=== PATIENT | female | born 1995 | race Caucasian/White ===

== ENCOUNTER 2021-08-29 07:58 | Emergency (ER) | payer OTHER, SELFPAY ==
[2021-08-29 08:02] VITALS: BP 128/77; PULSE 71; RESP 18; TEMP 36.8; O2SAT 98; BMI 43.4
--- NOTE | 2021-08-29 08:09 | ED_ITS ---
HPI - Anxiety General Chief Complaint: Nausea/Vomiting/Diarrhea Stated Complaint: VOMITING Time Seen by Provider: 08/29/21 07:59 Source: patient Mode of arrival: ambulatory Limitations: no limitations History of Present Illness MD complaint: anxiety (vomiting) Onset (ago): week(s) (1) Symptoms: extremity numbness/tingling, dry mouth, sense of impending doom and other (vomiting) Severity: moderate Quality: constant Place: home History of similar episodes: Yes Provoking factors: none known Relieving factors: nothing Exacerbating factors: nothing Associated symptoms: anorexia, malaise and nausea/vomiting Related Data Previous Rx's Medication Instructions Recorded ondansetron 4 mg disintegrating 4 mg PO Q8H PRN #20 tab 08/29/21 tablet Allergies Allergy/AdvReac Type Severity Reaction Status Date / Time No Known Allergies Allergy Verified 08/29/21 08:04 Review of Systems Review of Systems: Constitutional : No Weight loss, No Fever, No Chills ENT/Mouth : No sore throat, No Rhinorrhea Eyes: No Swelling, No Redness Cardiovascular : No Chest Pain, No SOB, NoEdema Respiratory : No Cough, No Sputum, No Wheezing Gastrointestinal : Positive Nausea, Positive Vomiting, no Diarrhea, positive abdominal Pain from vomiting, No Hematochezia, No Melena Genitourinary : No Dysuria, No Urinary Frequency, No Hematuria, No Urgency Musculoskeletal : No joint pain, No Myalgias, No Joint Swelling Skin : No Skin Lesions, No rash Neuro : No Weakness, No Numbness, No Dizziness, No Headache Psych : No Anxiety/Panic, No Depression Heme/Lymph: No Bruising, No Lymphadenopathy Endocrine : No Polyuria, No Polydipsia All other systems reviewed and are negative. [facility] Past Medical History Attestation statement: The following information was validated with the patient. Medical History Anxiety Benign tumor of pituitary gland Panic attack Social History Social History (Updated 08/29/21 @ 08:33 by Adelina Small DO) Patient Tobacco Use Status: Never used Tobacco Advance Directives: No Advance Directives Information Provided: No Patient : No Physical Exam Vital Signs: Vital Signs: Last Vital Signs Temp 99.1 F 08/29/21 09:12 Pulse 54 08/29/21 09:12 Resp 15 08/29/21 09:12 BP 115/81 08/29/21 09:12 Pulse Ox 94 08/29/21 09:12 Body Mass Index 43.4 Appearance: Alert. Oriented X3. Anxious mild acute distress. Eyes: Pupils equal, round and reactive to light. ENT: Pharynx mild dry MM Neck: Normal inspection. Neck supple. CVS: Normal heart rate and rhythm. Pulses normal. Respiratory: No respiratory distress. Breath sounds normal. Abdomen: Soft and very mild epigastric ttp no rebound or guarding Skin: Skin warm and dry. Normal skin color. Extremities: No lower extremity edema. Neuro: Oriented X 3. No motor deficit. No sensory deficit. Course Course Course Narrative: feels much better stable for DC MDM - Anxiety MDM Narrative Medical decision making narrative: 26 yo female with anxiety here with c/o panic attacks all week without trigger she reports n/v and now epigastric discomfort - she is taking her sertraline as prescribed. At this time will need basic labs, hydration and IV ativan to get her symptoms under control. No SI - if she is improved can be DC home with nausea medications. Lab Data Result diagrams: 08/29/21 08:47 08/29/21 08:47 Labs: Lab Results 08/29/21 08/29/21 08/29/21 Range/Units 08:47 08:47 08:47 WBC 8.6 (4.8-10.8) X10*3/uL RBC 4.16 L (4.20-5.50) X10*6/uL Hgb 13.3 (12.0-16.0) g/dl Hct 38.2 (37.0-47.0) % MCV 91.8 (80.0-98.0) fL MCH 32.0 (27.0-33.0) pg MCHC 34.8 (31.0-35.0) g/dl RDW 12.3 (11.0-16.0) % Plt Count 345 (160-400) X10*3/uL MPV 10.1 (9.4-12.3) fL Immature Gran % (Auto) 0.3 (0.0-0.4) % Neut % (Auto) 75.9 H (45-73) % Lymph % (Auto) 17.0 L (20-40) % [place] % (Auto) 6.0 (2-11) % Eos % (Auto) 0.5 (0-4) % Baso % (Auto) 0.3 (0-2) % Lymph # (Auto) 1.5 (1.2-4.9) X10*3/uL [place] # (Auto) 0.5 (0.1-1.2) X10*3/uL Eos # (Auto) 0.0 (0.0-0.4) X10*3/uL Baso # (Auto) 0.0 (0.0-0.2) X10*3/uL Abs Immat Gran (auto) 0.03 (0.00-0.03) X10*3/uL Absolute Neuts (auto) 6.5 (2.0-8.3) x10*3/uL Absolute Nucleated RBC 0.000 (0.0-0.012) X10*3/uL Nucleated RBC % (auto) 0.0 (0.0-0.2) /100WBC Sodium 139 (135-145) mmol/L Potassium 3.7 (3.3-5.1) mmol/L Chloride 110 H (96-108) mmol/L Carbon Dioxide 16 L (22-29) mmol/L Anion Gap 17 (12-20) BUN 12 (9-16) mg/dL Creatinine 0.81 (0.5-1.4) mg/dL Estim Creat Clear Calc 117.0 Estimated GFR > 60 Random Glucose 113 (60-115) mg/dL Calcium 9.5 (8.4-10.2) mg/dL Magnesium 2.1 (1.6-2.6) mg/dL Total Bilirubin 0.6 (0.0-1.0) mg/dL Direct Bilirubin 0.3 (0.0-0.5) mg/dL AST 25 (5-31) U/L ALT 35 H (0-31) U/L Alkaline Phosphatase 72 (39-117) U/L Total Protein 8.1 H (6.5-8.0) g/dL Albumin 4.6 (3.5-5.0) g/dL Beta HCG, Quant < 2 mIU/mL Discharge Plan Discharge Clinical Impression: Anxiety Vomiting Qualifiers: Vomiting type: unspecified Vomiting Intractability: non-intractable Nausea presence: with nausea Qualified Code(s): R11.2 - Nausea with vomiting, unspecified Patient Disposition: Home, Self-Care Instructions: Acute Nausea and Vomiting (ED), Anxiety (ED) Additional Instructions: return to ED for any worsening symptoms or concerns please continue to find a therapist Prescriptions: New ondansetron 4 mg tablet,disintegrating 4 mg PO Q8H PRN (Reason: nausea and vomiting) Qty: 20 RF: 0 Stand Alone Forms: Work/School Release
[2021-08-29 08:52] LABS: MANUAL DIFF FLAG NO
[2021-08-29 08:56] LABS: Basophils Percent Auto 0.3 % (0-2); Eosinophils Percent Auto 0.5 % (0-4); Hematocrit 38.2 % (37.0-47.0); Hemoglobin 13.3 g/dl (12.0-16.0); Imm Gran Abs Auto 0.03 X10*3/uL (0.00-0.03); Imm Gran Pct Auto 0.3 % (0.0-0.4); Lymphocytes Absolute Auto 1.5 X10*3/uL (1.2-4.9); Mean Corpuscular HGB Conc 34.8 g/dl (31.0-35.0); Mean Corpuscular Volume 91.8 fL (80.0-98.0); Mean Platelet Volume 10.1 fL (9.4-12.3); Monocytes Absolute Auto 0.5 X10*3/uL (0.1-1.2); Neutrophils Absolute Auto 6.5 x10*3/uL (2.0-8.3); Neutrophils Percent Auto 75.9 % (45-73); Platelet Count 345 X10*3/uL (160-400); Red Blood Count 4.16 X10*6/uL (4.20-5.50); Red Cell Distribution Width 12.3 % (11.0-16.0); White Blood Count 8.6 X10*3/uL (4.8-10.8)
[2021-08-29] MEDS: ondansetron HCL 4 MG/2 ML VIAL IVPUSH (08:57)
[2021-08-29] MEDS: LORazepam 2 MG/ML VIAL 1 MG IVPUSH (08:57)
[2021-08-29] MEDS: Famotidine/PF 20 MG/2 ML VIAL IVPUSH (08:57)
[2021-08-29] MEDS: 0.9 % Sodium Chloride 1,000 ML 999 ML IVCONT (09:05)
[2021-08-29 09:08] LABS: Alanine Aminotransferase 35 U/L (0-31); Albumin Level 4.6 g/dL (3.5-5.0); Alkaline Phosphatase 72 U/L (39-117); Anion Gap 17 (12-20); Aspartate Amino Transferase 25 U/L (5-31); Bilirubin Direct 0.3 mg/dL (0.0-0.5); Bilirubin Total 0.6 mg/dL (0.0-1.0); Blood Urea Nitrogen 12 mg/dL (9-16); Calcium 9.5 mg/dL (8.4-10.2); Carbon Dioxide 16 mmol/L (22-29); Chloride 110 mmol/L (96-108); Estimated Glomerular Filt Rate > 60; Glucose Random 113 mg/dL (60-115); Magnesium 2.1 mg/dL (1.6-2.6); Potassium 3.7 mmol/L (3.3-5.1); Sodium 139 mmol/L (135-145); Total Protein 8.1 g/dL (6.5-8.0)
[2021-08-29 09:12] VITALS: BP 115/81; PULSE 54; RESP 15; TEMP 37.3; O2SAT 94
[2021-08-29 09:14] LABS: HCG Quantitative < 2 mIU/mL
== END 2021-08-29 11:31 | disposition home or self-care (01) ==
PROVIDERS: Emergency Provider Emergency Medicine; PCP Family Medicine
DX: F41.9 Anxiety disorder, unspecified (principal); R11.2 Nausea with vomiting, unspecified
CPT/HCPCS: 36415; 80048; 80076; 83735; 84702; 85025; 96361; 96374; 96375; 99283; 99284; J2060; J2405

== ENCOUNTER 2021-09-07 09:26 | Emergency (ER) | payer OTHER, SELFPAY ==
--- NOTE | ~2021-09-07 | CT_ITS ---
EXAMINATION: CT ABDOMEN AND PELVIS WITH CONTRAST CLINICAL INFORMATION: Nausea, vomiting and left-sided abdominal pain COMPARISON: None TECHNIQUE: Multidetector volumetric images were obtained from the superior aspect of the liver through the pubic symphysis following administration 85 mL of Omnipaque 350 intravenous contrast. Sagittal and coronal reformatted images were obtained on the technologist's workstation. Oral contrast: Yes This CT examination was performed using dose optimization techniques as appropriate, variously including the following: *Automated exposure control *Adjustment of mA and/or kV according to patient size (this includes techniques or standardized protocols for targeted exams where dose is matched to indication/reason for exam; i.e. extremities or head) *Use of iterative reconstruction technique DLP: 810 mGy-cm FINDINGS: LUNG BASES: The visualized lung bases are unremarkable. LIVER, GALLBLADDER, AND BILIARY TREE: The liver is normal in size, shape, and attenuation. No focal hepatic lesion or biliary ductal dilatation is present. The gallbladder is unremarkable with no evidence of radiopaque gallstones, gallbladder wall thickening, or obvious pericholecystic inflammatory changes. PANCREAS: Unremarkable. SPLEEN: Unremarkable. ADRENAL GLANDS: Unremarkable. KIDNEYS AND URETERS: The kidneys are normal in size, shape, and attenuation. No hydronephrosis, hydroureter, or calculi seen. No perinephric stranding. BLADDER: Unremarkable. GASTROINTESTINAL TRACT: There is mild diverticulosis of the colon. The small and large bowel are otherwise unremarkable. The appendix is unremarkable. ABDOMINAL WALL: No significant hernia is appreciated. LYMPH NODES: Normal. VASCULAR: Unremarkable. PELVIC VISCERA: Unremarkable. OSSEOUS STRUCTURES: Unremarkable. CT/CT abdomen pelvis w con IMPRESSION: No acute findings. Mild diverticulosis of the colon. Fleischner guidelines were followed.
[2021-09-07 09:44] VITALS: BP 121/81; PULSE 72; RESP 18; TEMP 37.1; O2SAT 99; BMI 43.4
[2021-09-07] MEDS: 0.9 % Sodium Chloride 1,000 ML 999 ML IVCONT (10:18)
[2021-09-07] MEDS: ondansetron HCL 4 MG/2 ML VIAL IVPUSH (10:26)
[2021-09-07 10:27] LABS: MANUAL DIFF FLAG NO
[2021-09-07 10:30] LABS: Basophils Percent Auto 0.2 % (0-2); Eosinophils Percent Auto 0.3 % (0-4); Hematocrit 40.1 % (37.0-47.0); Hemoglobin 13.4 g/dl (12.0-16.0); Imm Gran Abs Auto 0.02 X10*3/uL (0.00-0.03); Imm Gran Pct Auto 0.3 % (0.0-0.4); Lymphocytes Absolute Auto 1.8 X10*3/uL (1.2-4.9); Mean Corpuscular HGB Conc 33.4 g/dl (31.0-35.0); Mean Corpuscular Hemoglobin 31.3 pg (27.0-33.0); Mean Corpuscular Volume 93.7 fL (80.0-98.0); Mean Platelet Volume 10.9 fL (9.4-12.3); Monocytes Absolute Auto 0.6 X10*3/uL (0.1-1.2); Monocytes Percent Auto 10.4 % (2-11); Neutrophils Absolute Auto 3.4 x10*3/uL (2.0-8.3); Neutrophils Percent Auto 57.8 % (45-73); Platelet Count 213 X10*3/uL (160-400); Red Blood Count 4.28 X10*6/uL (4.20-5.50); Red Cell Distribution Width 12.3 % (11.0-16.0); White Blood Count 5.8 X10*3/uL (4.8-10.8)
[2021-09-07 10:50] LABS: INTERNATIONAL NORM RATIO 1.1 (0.9-1.1); Prothrombin Time 12.1 SEC (9.9-13.0)
--- NOTE | 2021-09-07 11:08 | ED.NAVMDI ---
HPI - Nausea/Vomiting/Diarrhea General Chief complaint: Nausea/Vomiting/Diarrhea Stated complaint: Abd pain/vomiting Time Seen by Provider: 09/07/21 09:55 Source: patient and family Mode of arrival: ambulatory Limitations: no limitations History of Present Illness HPI Narrative: 26-year-old female with a past medical history of anxiety, panic attacks and benign tumor of pituitary gland presenting to the ED with complaints of nausea / vomiting with left abdominal pain for the past 2 days worse today. She denies any fevers, chills, dizziness, headaches, chest pain or shortness of breath, black or bloody emesis, radiation of the abdominal pain, back pain, dysuria, hematuria, black or bloody stools, recent travel or sick contacts or possible bad food exposure or any other symptoms complaints or Concerns at this time. MD elicited complaint: nausea, vomiting and abdominal pain Onset (ago): day(s) (2) Description of vomiting: food contents, watery, bilious and continuous Associated nausea: Yes Associated abdominal pain: Yes Location of pain: periumbilical and LLQ Radiation: does not radiate Pain consistency: constant Severity: moderate Quality: cramping, aching and constant Exacerbating factors: eating and vomiting Relieving factors: none Associated symptoms: denies other symptoms Related Data Previous Rx's Medication Instructions Recorded ondansetron 4 mg disintegrating 4 mg PO Q8H PRN #20 tab 08/29/21 tablet acetaminophen 500 mg tablet 1,000 mg PO QID PRN #14 tab 09/07/21 (Tylenol Extra Strength) ondansetron HCl 4 mg tablet 4 mg PO Q8H PRN #14 tab 09/07/21 (Zofran) Allergies Allergy/AdvReac Type Severity Reaction Status Date / Time No Known Allergies Allergy Verified 08/29/21 08:04 Review of Systems Review of Systems: Constitutional : No Fever, No Chills, No Night Sweats, No Fatigue, No Malaise Cardiovascular : No Chest Pain, No SOB Respiratory : No Cough, No Sputum, No Wheezing, No Dyspnea Gastrointestinal : + Nausea, + Vomiting, No Diarrhea, + abdominal Pain, No Hematochezia, No Melena Genitourinary : No irregular bleeding, No Dysuria, No Urinary Frequency, No Hematuria,No Urinary Incontinence, No Urgency, No Flank Pain Musculoskeletal : No joint pain, No Myalgias, No Joint Swelling Skin : No Skin Lesions, No rash Neuro : No Weakness, No Numbness, No Paresthesias, No Loss of Consciousness, No Dizziness, No Headache Heme/Lymph: No Lymphadenopathy Endocrine : No Temperature Intolerance Yes all other systems are reviewed and are negative Gastrointestinal: Gastrointestinal: Reports nausea PMFSH Past Medical History Attestation statement: The following information was validated with the patient. Medical History (Updated 09/07/21 @ 14:41 by NYLA Lujan) Anxiety Benign tumor of pituitary gland Panic attack Social History Social History (Updated 08/29/21 @ 08:33 by Adelina Small DO) Alcohol intake: never Patient Tobacco Use Status: Never used Tobacco Use of substances other than those prescribed or required for medical reasons: No Advance Directives: No Advance Directives Information Provided: No Patient : No Physical Exam Vital Signs: Vital Signs: Last Vital Signs Temp 98.8 F 09/07/21 09:44 Pulse 72 09/07/21 09:44 Resp 18 09/07/21 09:44 BP 121/81 09/07/21 09:44 Pulse Ox 99 09/07/21 09:44 BMI result Body Mass Index 43.4 vital signs have been reviewed as normal and appeared to be correct. Blood pressure normal. Heart rate normal. Respiration rate normal. Temperature normal. Oxygen saturation normal. Appearance: Alert. Oriented X3. No acute distress. Head: Normal external exam. Normocephalic. Eyes: PERRLA. EOMI. Conjunctiva and sclera normal. Eyelids normal. ENT: Pharynx normal. Uvula midline. Moist mucous membranes. Neck: Normal inspection. Neck supple. FROM. No adenopathy. No meningeal signs. CVS: Normal heart rate and rhythm. Heart sound normal. No murmurs noted. Pulses normal throughout. Respiratory: No respiratory distress. Painless inspiration. Breath sounds normal. No wheezes/rales/rhonchi noted. Chest nontender. No accessory muscle usage noted or decreased air movement noted. Abdomen: Soft and mild ttp to left lower abdomen. Nondistended. No guarding. No rigidity. Bowel sounds normal in all 4 quadrants. No distention noted. No organomegaly noted. No visible injury noted. No rebound tenderness. Negative Rovsing sign. Negative obturator's sign. Negative psoas sign. Negative Mauro sign. Back: No CVA tenderness. Full range of motion noted. Skin: Skin warm and dry. Normal skin color. Normal skin turgor. No rashes/lesions/lacerations noted. Extremities: Extremities exhibit normal range of motion. Extremities nontender. Neuro: Oriented X 3. No motor deficit. No sensory deficit. Reflexes normal. Normal steady gait. Course Course Course Narrative: 10am - 26-year-old female with a past medical history of anxiety, panic attacks and benign tumor of pituitary gland presenting to the ED with complaints of nausea / vomiting with left abdominal pain for the past 2 days worse today. Concern for Diverticulitis versus kidney stone versus UTI versus constipation. Less concern for cholecystitis versus pancreatitis versus appendicitis does not clinically correlate with the patient's history and physical. Plan: Labs, UA, UHCG, CT scan abdomen pelvis with IV contrast. Provide a L of IV fluids and 4 mg of Zofran and re-evaluate. Reevaluation(s) Reevaluation #1: - Labs reviewed and patient's AST/ ALT of 43/53 otherwise all other labs are within normal limits. UA revealed 80 ketones otherwise no evidence of UTI patient negative for . Patient was positive for COVID. Patient negative for flu/ RSV. - CT scan abdomen pelvis with IV contrast revealed mild diverticulosis of the colon otherwise no other acute processes were noted. Therefore at this time will DC home with symptomatic treatment struck shins to self isolate and to return if any new or worsening symptoms to follow up with primary care provider. Patient understands agrees with this plan. Time: 14:37 MDM - Nausea/Vomiting/Diarrhea Medical Records Attestation: I reviewed the patient's medical records. Lab Data Attestation: I reviewed the patient's lab results. Result diagrams: 09/07/21 10:19 09/07/21 13:07 Labs: Lab Results 09/07/21 09/07/21 09/07/21 Range/Units 10:19 10:19 10:35 WBC 5.8 (4.8-10.8) X10*3/uL RBC 4.28 (4.20-5.50) X10*6/uL Hgb 13.4 (12.0-16.0) g/dl Hct 40.1 (37.0-47.0) % MCV 93.7 (80.0-98.0) fL MCH 31.3 (27.0-33.0) pg MCHC 33.4 (31.0-35.0) g/dl RDW 12.3 (11.0-16.0) % Plt Count 213 D (160-400) X10*3/uL MPV 10.9 (9.4-12.3) fL Immature Gran % (Auto) 0.3 (0.0-0.4) % Neut % (Auto) 57.8 (45-73) % Lymph % (Auto) 31.0 (20-40) % [place] % (Auto) 10.4 (2-11) % Eos % (Auto) 0.3 (0-4) % Baso % (Auto) 0.2 (0-2) % Lymph # (Auto) 1.8 (1.2-4.9) X10*3/uL [place] # (Auto) 0.6 (0.1-1.2) X10*3/uL Eos # (Auto) 0.0 (0.0-0.4) X10*3/uL Baso # (Auto) 0.0 (0.0-0.2) X10*3/uL Abs Immat Gran (auto) 0.02 (0.00-0.03) X10*3/uL Absolute Neuts (auto) 3.4 (2.0-8.3) x10*3/uL Absolute Nucleated RBC 0.000 (0.0-0.012) X10*3/uL Nucleated RBC % (auto) 0.0 (0.0-0.2) /100WBC PT 12.1 (9.9-13.0) SEC INR 1.1 (0.9-1.1) Sodium (135-145) mmol/L Potassium (3.3-5.1) mmol/L Chloride (96-108) mmol/L Carbon Dioxide (22-29) mmol/L Anion Gap (12-20) BUN (9-16) mg/dL Creatinine (0.5-1.4) mg/dL Estim Creat Clear Calc Estimated GFR Random Glucose (60-115) mg/dL Calcium (8.4-10.2) mg/dL Magnesium (1.6-2.6) mg/dL Total Bilirubin (0.0-1.0) mg/dL AST (5-31) U/L ALT (0-31) U/L Alkaline Phosphatase (39-117) U/L Total Protein (6.5-8.0) g/dL Albumin (3.5-5.0) g/dL Lipase (8-78) U/L Beta HCG, Quant mIU/mL Urine Color Urine Appearance Urine pH (5.0-8.0) Ur Specific [place] (1.005-1.025) Urine Protein (NEG-TRACE) MG/DL Urine Glucose (UA) (NEG) MG/DL Urine Ketones (NEG) MG/DL Urine Blood (NEG) Urine Nitrite (NEG) Ur Leukocyte Esterase (NEG) Urine RBC (0) /HPF Urine WBC (0-4) /HPF Ur Squamous Epith Cells /LPF Amorphous Sediment /LPF Urine Bacteria /LPF Urine Test Influenza Type A (PCR) NEGATIVE (Negative) Influenza Type B (PCR) NEGATIVE (Negative) RSV RNA Qual (PCR) NEGATIVE (Negative) SARS-CoV-2 RNA (RT-PCR) POSITIVE A (Negative) 09/07/21 09/07/21 09/07/21 Range/Units 11:56 11:56 13:07 WBC (4.8-10.8) X10*3/uL RBC (4.20-5.50) X10*6/uL Hgb (12.0-16.0) g/dl Hct (37.0-47.0) % MCV (80.0-98.0) fL MCH (27.0-33.0) pg MCHC (31.0-35.0) g/dl RDW (11.0-16.0) % Plt Count (160-400) X10*3/uL MPV (9.4-12.3) fL Immature Gran % (Auto) (0.0-0.4) % Neut % (Auto) (45-73) % Lymph % (Auto) (20-40) % [place] % (Auto) (2-11) % Eos % (Auto) (0-4) % Baso % (Auto) (0-2) % Lymph # (Auto) (1.2-4.9) X10*3/uL [place] # (Auto) (0.1-1.2) X10*3/uL Eos # (Auto) (0.0-0.4) X10*3/uL Baso # (Auto) (0.0-0.2) X10*3/uL Abs Immat Gran (auto) (0.00-0.03) X10*3/uL Absolute Neuts (auto) (2.0-8.3) x10*3/uL Absolute Nucleated RBC (0.0-0.012) X10*3/uL Nucleated RBC % (auto) (0.0-0.2) /100WBC PT (9.9-13.0) SEC INR (0.9-1.1) Sodium 142 (135-145) mmol/L Potassium 3.7 (3.3-5.1) mmol/L Chloride 109 H (96-108) mmol/L Carbon Dioxide 23 (22-29) mmol/L Anion Gap 14 (12-20) BUN 9 (9-16) mg/dL Creatinine 0.80 (0.5-1.4) mg/dL Estim Creat Clear Calc 118.4 Estimated GFR > 60 Random Glucose 73 (60-115) mg/dL Calcium 9.0 (8.4-10.2) mg/dL Magnesium 2.1 (1.6-2.6) mg/dL Total Bilirubin 0.7 (0.0-1.0) mg/dL AST 43 H D (5-31) U/L ALT 53 H (0-31) U/L Alkaline Phosphatase 61 (39-117) U/L Total Protein 7.1 (6.5-8.0) g/dL Albumin 4.1 (3.5-5.0) g/dL Lipase 46 (8-78) U/L Beta HCG, Quant < 2 mIU/mL Urine Color YELLOW Urine Appearance HAZY Urine pH 7.5 (5.0-8.0) Ur Specific [place] 1.015 (1.005-1.025) Urine Protein 1+ H (NEG-TRACE) MG/DL Urine Glucose (UA) NEG (NEG) MG/DL Urine Ketones >=80 (NEG) MG/DL Urine Blood NEG (NEG) Urine Nitrite NEG (NEG) Ur Leukocyte Esterase NEG (NEG) Urine RBC 0 (0) /HPF Urine WBC 0-2 (0-4) /HPF Ur Squamous Epith Cells 3+ /LPF Amorphous Sediment 3+ /LPF Urine Bacteria TRACE /LPF Urine Test Cancelled Influenza Type A (PCR) (Negative) Influenza Type B (PCR) (Negative) RSV RNA Qual (PCR) (Negative) SARS-CoV-2 RNA (RT-PCR) (Negative) Imaging Data CT scan abdomen pelvis with IV contrast: Attestation: I personally reviewed and interpreted this imaging study as follows: Radiologist's impression: FINDINGS: LUNG BASES: The visualized lung bases are unremarkable.? LIVER, GALLBLADDER, AND BILIARY TREE: The liver is normal in size, shape, and attenuation. No focal hepatic lesion or biliary ductal dilatation is present. The gallbladder is unremarkable with no evidence of radiopaque gallstones, gallbladder wall thickening, or obvious pericholecystic inflammatory changes.? PANCREAS: Unremarkable.? SPLEEN: Unremarkable.? ADRENAL GLANDS: Unremarkable.? KIDNEYS AND URETERS: The kidneys are normal in size, shape, and attenuation. No hydronephrosis, hydroureter, or calculi seen. No perinephric stranding. ? BLADDER: Unremarkable.? GASTROINTESTINAL TRACT: There is mild diverticulosis of the colon. The small and large bowel are otherwise unremarkable. The appendix is unremarkable.? ABDOMINAL WALL: No significant hernia is appreciated.? LYMPH NODES: Normal. VASCULAR: Unremarkable. PELVIC VISCERA: Unremarkable.? OSSEOUS STRUCTURES: Unremarkable.? CT/CT abdomen pelvis w con IMPRESSION: No acute findings. Mild diverticulosis of the colon. ? Fleischner guidelines were followed. Discharge Plan Discharge Clinical Impression: COVID-19, Nausea & vomiting, Abdominal pain, Diverticulosis Patient Disposition: Home, Self-Care Instructions: Diverticulosis (ED), Acute Nausea and Vomiting (ED), COVID-19 (Coronavirus Disease 2019) (ED) Additional Instructions: you are positive for covid plan to quarantine for at least 10 days since your symptoms started. Return if any new or worsening symptoms. Follow up with her primary care provider. At this time you will be okay for discharge. Please plan for self quarantine for up to 10 days. Do not expose yourself to others. You may not go to work. Please continue to follow cold instructions and wash your hands frequently. You may take Tylenol as directed on the bottle for pain or fever. Patient seen in the emergency department on -------- and should be excused from work until negative test results AND until 72 hours without any symptoms AND at least 10 days have passed since symptoms first appeared or since last exposure to COVID-19 positive patient CDC Guidelines for home isolation: - Stay away from others - WEAR A MASK if you are sick AND STAY HOME - Cover your mouth and nose with a tissue when you cough or sneeze. Dispose of tissues in a lined trash can and wash your hands immediately with soap and water for at least 20 seconds. If soap and water are not available, clean hands with alcohol-based hand vice president quality assurance that contains at least 60% alcohol. - Clean your hands often with soap and water for at least 20 seconds - Avoid touching your eyes, nose and mouth with unwashed hands - Do not share dishes, drinking glasses, cups, eating utensils, towels, or bedding with other people in your home. After using these items, wash them thoroughly with soap and water or put in the operations vocational instructor. - Clean high-touch surfaces in your isolation area ( sick room and bathroom) every day; let a caregiver clean and disinfect high-touch surfaces in other areas of the home. Clean the area or item with soap and water or another detergent if it is dirty. Then, use a household disinfectant. - Limit contact with pets and animals: If you must care for a pet, wash your hands before and after interacting with them). Prescriptions: New ondansetron HCl [Zofran] 4 mg tablet 4 mg PO Q8H PRN (Reason: nausea and vomiting) Qty: 14 RF: 0 acetaminophen [Tylenol Extra Strength] 500 mg tablet 1,000 mg PO QID PRN (Reason: fever or pain) Qty: 14 RF: 0 No Action ondansetron 4 mg tablet,disintegrating 4 mg PO Q8H PRN (Reason: nausea and vomiting) Qty: 20 RF: 0 Referrals: Shanique Myers MD [Primary Care Provider] - 2 days Stand Alone Forms: Work/School Release Print Language: Armenian
[2021-09-07 11:23] LABS: Influenza A PCR NEGATIVE (Negative); Influenza B PCR NEGATIVE (Negative); Resp Syncy Virus RNA Qual PCR NEGATIVE (Negative); SARS COV2 PCR INHOUSE POSITIVE (Negative)
[2021-09-07 12:13] LABS: Appearance Urine HAZY; Color Urine YELLOW; Glucose Urine UA NEG (NEG); Leukocyte Esterase Urine NEG (NEG); Nitrite Urine NEG (NEG); PH 7.5 (5.0-8.0); Specific Gravity - Urine 1.015 (1.005-1.025); UACC Culture Trigger NO; Urine Blood NEG (NEG); Urine Ketones >=80 MG/DL (NEG); Urine Protein 1+ MG/DL (NEG-TRACE)
[2021-09-07 12:19] LABS: Squamous Epithelial Cell Urine 3+ /LPF
[2021-09-07 12:20] LABS: Amorphous Sediment Urine 3+ /LPF; WBC Urine 0-2 /HPF (0-4)
[2021-09-07 12:21] LABS: Bacteria Urine TRACE /LPF; RBC Urine 0 /HPF (0)
[2021-09-07 13:30] LABS: Alanine Aminotransferase 53 U/L (0-31); Albumin Level 4.1 g/dL (3.5-5.0); Alkaline Phosphatase 61 U/L (39-117); Anion Gap 14 (12-20); Aspartate Amino Transferase 43 U/L (5-31); Bilirubin Total 0.7 mg/dL (0.0-1.0); Blood Urea Nitrogen 9 mg/dL (9-16); Carbon Dioxide 23 mmol/L (22-29); Chloride 109 mmol/L (96-108); Creatinine Clr Calc Pharmacy 118.4; Estimated Glomerular Filt Rate > 60; Glucose Random 73 mg/dL (60-115); Lipase 46 U/L (8-78); Magnesium 2.1 mg/dL (1.6-2.6); Potassium 3.7 mmol/L (3.3-5.1); Sodium 142 mmol/L (135-145); Total Protein 7.1 g/dL (6.5-8.0)
[2021-09-07 13:36] LABS: HCG Quantitative < 2 mIU/mL
[2021-09-07] MEDS: iohexoL 350 MG/ML 100 ML INFUS..BTL IV (14:15)
== END 2021-09-07 14:50 | disposition home or self-care (01) ==
PROVIDERS: Physician Assistant Medical; Emergency Provider Emergency Medicine; PCP Family Medicine
DX: U07.1 COVID-19 (principal); K57.90 Diverticulosis of intestine, part unspecified, without perforation or abscess without bleeding; R11.2 Nausea with vomiting, unspecified; R10.9 Unspecified abdominal pain
CPT/HCPCS: 0241U; 36415; 74177; 80053; 81001; 83690; 83735; 84702; 85025; 85610; 96361; 96374; 99284; J2405; Q9967

== ENCOUNTER 2021-10-03 08:48 | Emergency (ER) | payer OTHER, SELFPAY ==
--- NOTE | ~2021-10-03 | US_ITS ---
EXAMINATION: US OBSTETRICAL ULTRASOUND CLINICAL INFORMATION: Pelvic pain in early . Evaluate for ectopic . COMPARISON: None LMP: 08/20/2021 Gestational age by maternal dates is 6 weeks 2 days. Estimated date of delivery by maternal dates is 05/27/2022. TECHNIQUE: Transabdominal and transvaginal pelvic ultrasound performed. FINDINGS: There is a gestational sac and yolk sac identified. No subchorionic hemorrhage. Gestational sac measures 0.9 cm corresponding to 5 weeks 4 days . There is no pole identified. No heart rate. Single apparent gestation. Right ovary: 3.1 x 1.7 x 1.7 cm. Left ovary: 2.5 x 1.9 x 1.9 cm. There is no significant maternal adnexal mass. No maternal pelvic ascites. US/US OB pelvic and transvaginal IMPRESSION: 1. Single intrauterine gestation with ultrasound gestational age of 5 weeks +/- 4 days. 2. Estimated date of delivery is 05/27/2022 +/- 4 days. 3. No maternal adnexal mass or pelvic ascites.
[2021-10-03 08:56] VITALS: BP 116/78; PULSE 95; RESP 18; TEMP 36.7; O2SAT 100; BMI 39.4
[2021-10-03 09:33] LABS: COVID-19 Test Negative (Negative); IDNOW Serial# 9DD0AD1C
--- NOTE | 2021-10-03 11:28 | ED.NAVMDI ---
HPI - Nausea/Vomiting/Diarrhea General Chief complaint: Nausea/Vomiting/Diarrhea Stated complaint: vomiting Time Seen by Provider: 10/03/21 11:17 Source: patient Mode of arrival: ambulatory Limitations: no limitations History of Present Illness HPI Narrative: 26 y/o female with history of anxiety/depression, benign pituitary tumor (?prolactinoma - reports lactating since age 12, was previously on meds but levels normalized) who presents to the ER with 3 days of severe anxiety and nausea and vomiting in the setting of finding out she is . She took a test at home 3 days ago after she was late for her period (last was 08/20) and it was positive. She has never been before and this was unplanned. She states I am not ready to be a mom, but is planning on keeping the baby. She has support of her partner and parents who she lives with. She states she has been waking up feeling very nauseated and vomiting multiple times per day. She also has lower abdominal and pelvic cramping intermittently she describes as mild-moderate and like a period cramp. She denies vaginal bleeding or vaginal discharge. No fever or chills and no urinary symptoms. She reports the pain is central and not on one side more than the other. She took 1 dose of her PRN ativan when she found out she was but has not taken it since because she is worried it is unsafe for the baby. She has been taking her Zoloft 150 mg daily. 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 MD elicited complaint: nausea, vomiting and abdominal pain Onset (ago): day(s) (3) Description of vomiting: watery and other (now only dry heaves) Associated nausea: Yes Associated abdominal pain: Yes Location of pain: pelvis Pain consistency: intermittent Severity: moderate Quality: cramping Exacerbating factors: none Relieving factors: none Associated symptoms: loss of appetite, nausea/vomiting and anxiety Related Data Previous Rx's Medication Instructions Recorded ondansetron 4 mg disintegrating 4 mg PO Q8H PRN #20 tab 08/29/21 tablet acetaminophen 500 mg tablet 1,000 mg PO QID PRN #14 tab 09/07/21 (Tylenol Extra Strength) ondansetron HCl 4 mg tablet 4 mg PO Q8H PRN #14 tab 09/07/21 (Zofran) amoxicillin 500 mg tablet 500 mg PO Q12H 10 Days #20 tab 09/29/21 ondansetron 4 mg disintegrating 4 mg PO Q8H PRN #10 tab 10/03/21 tablet Allergies Allergy/AdvReac Type Severity Reaction Status Date / Time No Known Allergies Allergy Verified 10/03/21 08:56 Review of Systems Gastrointestinal: Gastrointestinal: Reports nausea PMFSH Past Medical History Medical History (Updated 10/03/21 @ 15:15 by NYLA Martinez) Anxiety Benign tumor of pituitary gland Panic attack Social History Social History (Updated 08/29/21 @ 08:33 by Adelina Small DO) Alcohol intake: never Patient Tobacco Use Status: Never used Tobacco Advance Directives: No Advance Directives Information Provided: No Patient : Yes Physical Exam Vital Signs: Vital Signs: Last Vital Signs Temp 98.1 F 10/03/21 08:56 Pulse 95 10/03/21 08:56 Resp 18 10/03/21 08:56 BP 116/78 10/03/21 08:56 Pulse Ox 100 10/03/21 08:56 BMI result Body Mass Index 39.4 Appearance: Alert. Oriented X3. Anxious, hyperventilating Eyes: Pupils equal, round and reactive to light. ENT: Pharynx normal. Neck: Normal inspection. Neck supple. CVS: Normal heart rate and rhythm. Pulses normal. Respiratory: No respiratory distress but breathing rapidly. Breath sounds normal. Abdomen: Obese Soft and nontender. +BS x4. Pelvic deferred Skin: Skin warm and dry. Normal skin color. Normal skin turgor. No rashes. Extremities: No lower extremity edema. Neuro/psych: Oriented X 3. No motor deficit. No sensory deficit. Anxious, no tremor. Able to speak in complete sentences Course Course Course Narrative: 26 y/o female presenting early in with anxiety and vomiting. On arrival she is hyperventilating and anxious her fluids were normal and exam is benign. We discussed the risks and benefits of anxiolytics and early . Will hold off for now. Will treat her ongoing nausea and vomiting with IV fluids and Zofran. Will check electrolytes, quant HCG and pelvic U/S to r/o ectopic given pelvic pain. Reevaluation(s) Reevaluation #1: Workup is unremarkable. Her pelvic ultrasound showed a single IUP at about 5 weeks 4 days gestation. She states her anxiety increased when she saw physical evidence of the . She continues to dry heave. Will give dose of phenergan and reassess. Spoke with the CARE team and provided patient with [facility] information for her to follow up. Reevaluation #2: Patient sleeping after Phenergan. When she woke up she feels much better. No more vomiting or dry heaving. She remains anxious but feels safe to go home. She has appointment with her psychiatrist on Tuesday. Will provide p.r.n. sublingual Zofran as needed for nausea and vomiting. Will give work note for Tuesday. Stable for DC home with close outpatient follow-up and supportive care. MDM - Nausea/Vomiting/Diarrhea Lab Data Result diagrams: 10/03/21 11:43 10/03/21 11:43 Labs: Lab Results 10/03/21 10/03/21 10/03/21 Range/Units 09:00 11:43 11:43 WBC 15.0 H (4.8-10.8) X10*3/uL RBC 4.12 L (4.20-5.50) X10*6/uL Hgb 13.1 (12.0-16.0) g/dl Hct 37.8 (37.0-47.0) % MCV 91.7 (80.0-98.0) fL MCH 31.8 (27.0-33.0) pg MCHC 34.7 (31.0-35.0) g/dl RDW 13.1 (11.0-16.0) % Plt Count 307 D (160-400) X10*3/uL MPV 10.3 (9.4-12.3) fL Immature Gran % (Auto) 0.9 H (0.0-0.4) % Neut % (Auto) 84.0 H (45-73) % Lymph % (Auto) 10.4 L (20-40) % Atlantic % (Auto) 4.4 (2-11) % Eos % (Auto) 0.1 (0-4) % Baso % (Auto) 0.2 (0-2) % Lymph # (Auto) 1.6 (1.2-4.9) X10*3/uL [place] # (Auto) 0.7 (0.1-1.2) X10*3/uL Eos # (Auto) 0.0 (0.0-0.4) X10*3/uL Baso # (Auto) 0.0 (0.0-0.2) X10*3/uL Abs Immat Gran (auto) 0.13 H (0.00-0.03) X10*3/uL Absolute Neuts (auto) 12.6 H (2.0-8.3) x10*3/uL Absolute Nucleated RBC 0.000 (0.0-0.012) X10*3/uL Nucleated RBC % (auto) 0.0 (0.0-0.2) /100WBC Sodium 138 (135-145) mmol/L Potassium 3.8 (3.3-5.1) mmol/L Chloride 108 (96-108) mmol/L Carbon Dioxide 19 L (22-29) mmol/L Anion Gap 15 (12-20) BUN 8 L (9-16) mg/dL Creatinine 0.77 (0.5-1.4) mg/dL Estim Creat Clear Calc 116.4 Estimated GFR > 60 Random Glucose 109 (60-115) mg/dL Calcium 10.3 H D (8.4-10.2) mg/dL Magnesium 2.0 (1.6-2.6) mg/dL Total Bilirubin 0.5 (0.0-1.0) mg/dL Direct Bilirubin 0.2 (0.0-0.5) mg/dL AST 54 H (5-31) U/L ALT 27 (0-31) U/L Alkaline Phosphatase 80 D (39-117) U/L Total Protein 8.0 (6.5-8.0) g/dL Albumin 4.6 (3.5-5.0) g/dL Beta HCG, Quant 9982 mIU/mL Urine Color Urine Appearance Urine pH (5.0-8.0) Ur Specific [place] (1.005-1.025) Urine Protein (NEG-TRACE) MG/DL Urine Glucose (UA) (NEG) MG/DL Urine Ketones (NEG) MG/DL Urine Blood (NEG) Urine Nitrite (NEG) Ur Leukocyte Esterase (NEG) Urine RBC (0) /HPF Urine WBC (0-4) /HPF Ur Squamous Epith Cells /LPF Urine Bacteria /LPF Urine Mucus /LPF COVID-19 (SUSAN) Negative (Negative) COVID-19 Clin Com See Note 10/03/21 Range/Units 11:43 WBC (4.8-10.8) X10*3/uL RBC (4.20-5.50) X10*6/uL Hgb (12.0-16.0) g/dl Hct (37.0-47.0) % MCV (80.0-98.0) fL MCH (27.0-33.0) pg MCHC (31.0-35.0) g/dl RDW (11.0-16.0) % Plt Count (160-400) X10*3/uL MPV (9.4-12.3) fL Immature Gran % (Auto) (0.0-0.4) % Neut % (Auto) (45-73) % Lymph % (Auto) (20-40) % Atlantic % (Auto) (2-11) % Eos % (Auto) (0-4) % Baso % (Auto) (0-2) % Lymph # (Auto) (1.2-4.9) X10*3/uL [place] # (Auto) (0.1-1.2) X10*3/uL Eos # (Auto) (0.0-0.4) X10*3/uL Baso # (Auto) (0.0-0.2) X10*3/uL Abs Immat Gran (auto) (0.00-0.03) X10*3/uL Absolute Neuts (auto) (2.0-8.3) x10*3/uL Absolute Nucleated RBC (0.0-0.012) X10*3/uL Nucleated RBC % (auto) (0.0-0.2) /100WBC Sodium (135-145) mmol/L Potassium (3.3-5.1) mmol/L Chloride (96-108) mmol/L Carbon Dioxide (22-29) mmol/L Anion Gap (12-20) BUN (9-16) mg/dL Creatinine (0.5-1.4) mg/dL Estim Creat Clear Calc Estimated GFR Random Glucose (60-115) mg/dL Calcium (8.4-10.2) mg/dL Magnesium (1.6-2.6) mg/dL Total Bilirubin (0.0-1.0) mg/dL Direct Bilirubin (0.0-0.5) mg/dL AST (5-31) U/L ALT (0-31) U/L Alkaline Phosphatase (39-117) U/L Total Protein (6.5-8.0) g/dL Albumin (3.5-5.0) g/dL Beta HCG, Quant mIU/mL Urine Color YELLOW Urine Appearance HAZY Urine pH 8.5 H (5.0-8.0) Ur Specific [place] 1.010 (1.005-1.025) Urine Protein 1+ H (NEG-TRACE) MG/DL Urine Glucose (UA) NEG (NEG) MG/DL Urine Ketones >=80 (NEG) MG/DL Urine Blood NEG (NEG) Urine Nitrite NEG (NEG) Ur Leukocyte Esterase TRACE H (NEG) Urine RBC 0 (0) /HPF Urine WBC 5-9 H (0-4) /HPF Ur Squamous Epith Cells 3+ /LPF Urine Bacteria NONE /LPF Urine Mucus 1+ /LPF COVID-19 (SUSAN) (Negative) COVID-19 Clin Com Critical Care Time Critical Care Time Critical Care Time: No Discharge Plan Discharge Clinical Impression: Anxiety, Vomiting during Patient Disposition: Home, Self-Care Instructions: Nausea and Vomiting in (ED), Anxiety (ED) Additional Instructions: Recommend over the counter doxylamine (vitamin B6) - this is the safest way to help treat and prevent nausea in Take the prescribed nausea medication as needed 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 Follow [facility] with the [facility] If you develop new or worsening symptoms call 911 or come back to the ER for further evaluation. Prescriptions: New ondansetron 4 mg tablet,disintegrating 4 mg PO Q8H PRN (Reason: nausea and vomiting) Qty: 10 RF: 0 No Action ondansetron 4 mg tablet,disintegrating 4 mg PO Q8H PRN (Reason: nausea and vomiting) Qty: 20 RF: 0 ondansetron HCl [Zofran] 4 mg tablet 4 mg PO Q8H PRN (Reason: nausea and vomiting) Qty: 14 RF: 0 acetaminophen [Tylenol Extra Strength] 500 mg tablet 1,000 mg PO QID PRN (Reason: fever or pain) Qty: 14 RF: 0 amoxicillin 500 mg tablet 500 mg PO Q12H 10 Days Qty: 20 RF: 0 Stand Alone Forms: Work/School Release
[2021-10-03] MEDS: 0.9 % Sodium Chloride 1,000 ML 999 ML IVCONT (11:45)
[2021-10-03 11:50] LABS: MANUAL DIFF FLAG NO
[2021-10-03 11:51] LABS: Appearance Urine HAZY; Basophils Percent Auto 0.2 % (0-2); Color Urine YELLOW; Eosinophils Percent Auto 0.1 % (0-4); Glucose Urine UA NEG (NEG); Hematocrit 37.8 % (37.0-47.0); Hemoglobin 13.1 g/dl (12.0-16.0); Imm Gran Abs Auto 0.13 X10*3/uL (0.00-0.03); Imm Gran Pct Auto 0.9 % (0.0-0.4); Leukocyte Esterase Urine TRACE (NEG); Lymphocytes Absolute Auto 1.6 X10*3/uL (1.2-4.9); Lymphocytes Percent Auto 10.4 % (20-40); Mean Corpuscular HGB Conc 34.7 g/dl (31.0-35.0); Mean Corpuscular Hemoglobin 31.8 pg (27.0-33.0); Mean Corpuscular Volume 91.7 fL (80.0-98.0); Mean Platelet Volume 10.3 fL (9.4-12.3); Monocytes Absolute Auto 0.7 X10*3/uL (0.1-1.2); Monocytes Percent Auto 4.4 % (2-11); Neutrophils Absolute Auto 12.6 x10*3/uL (2.0-8.3); Nitrite Urine NEG (NEG); PH 8.5 (5.0-8.0); Platelet Count 307 X10*3/uL (160-400); Red Blood Count 4.12 X10*6/uL (4.20-5.50); Red Cell Distribution Width 13.1 % (11.0-16.0); UACC Culture Trigger YES; Urine Blood NEG (NEG); Urine Ketones >=80 MG/DL (NEG)
[2021-10-03 11:52] LABS: Urine Protein 1+ MG/DL (NEG-TRACE)
[2021-10-03] MEDS: ondansetron HCL 4 MG/2 ML VIAL IVPUSH (11:53)
[2021-10-03 11:57] LABS: Mucus Urine 1+ /LPF; Squamous Epithelial Cell Urine 3+ /LPF
[2021-10-03 11:58] LABS: RBC Urine 0 /HPF (0)
[2021-10-03 12:06] LABS: Alanine Aminotransferase 27 U/L (0-31); Albumin Level 4.6 g/dL (3.5-5.0); Alkaline Phosphatase 80 U/L (39-117); Anion Gap 15 (12-20); Aspartate Amino Transferase 54 U/L (5-31); Bilirubin Direct 0.2 mg/dL (0.0-0.5); Bilirubin Total 0.5 mg/dL (0.0-1.0); Blood Urea Nitrogen 8 mg/dL (9-16); Calcium 10.3 mg/dL (8.4-10.2); Carbon Dioxide 19 mmol/L (22-29); Chloride 108 mmol/L (96-108); Creatinine Clr Calc Pharmacy 116.4; Estimated Glomerular Filt Rate > 60; Glucose Random 109 mg/dL (60-115); Potassium 3.8 mmol/L (3.3-5.1); Sodium 138 mmol/L (135-145)
[2021-10-03 12:24] LABS: HCG Quantitative 9982 mIU/mL
[2021-10-03] MEDS: Acetaminophen 325 MG TABLET 650 MG PO (13:42)
[2021-10-03 16:45] VITALS: BP 131/83; PULSE 117; RESP 16; TEMP 37.5; O2SAT 96
[2021-10-04 06:46] LABS: Prolactin 15.4 ng/mL
== END 2021-10-03 16:59 | disposition home or self-care (01) ==
PROVIDERS: Physician Assistant; Emergency Provider Emergency Medicine
DX: O21.0 Mild hyperemesis gravidarum (principal); F41.1 Generalized anxiety disorder; F43.0 Acute stress reaction; Z3A.01 Less than 8 weeks gestation of pregnancy; Z20.822 Contact with and (suspected) exposure to COVID-19
CPT/HCPCS: 36415; 76801; 76817; 80048; 80076; 81001; 83735; 84146; 84702; 85025; 87086; 87635; 96361; 96374; 96375; 99283; 99284; J2405; J2550

== ENCOUNTER 2023-07-18 08:30 | Outpatient (AMB) | payer OTHER, SELFPAY ==
--- NOTE | 2023-07-18 09:53 | AM.OFFWIN_ITS ---
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 She denies measured fevers, URI symptoms, cough, chest pain, GI symptoms. 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 She has had strep several times in the past and feels similar. FORMERLY [facility], [facility] Medical History (Updated 10/04/21 @ 00:01 by Vira Childs) Benign tumor of pituitary gland Panic attack Anxiety Social History (Updated 08/29/21 @ 08:33 by Snehal Small DO) Alcohol intake: never Patient Tobacco Use Status: Never used Tobacco Review of Systems Const Reports as per HPI and Reports no additional complaints ENT Reports no additional complaints and Reports as per HPI Card Reports as per HPI and Reports no additional complaints Resp Reports as per HPI and Reports no additional complaints GI Reports as per HPI and Reports no additional complaints Neuro Reports no additional complaints and Reports as per HPI Physical Exam Vital Signs: Last Vital Signs Temp 97.8 F 07/18/23 10:02 Pulse 69 07/18/23 10:02 BP 120/70 07/18/23 10:02 Pulse Ox 97 07/18/23 10:02 Oxygen Delivery Method Room Air 07/18/23 10:02 Const General: cooperative, comfortable and no acute distress Orientation/consciousness: patient oriented x3 HEENT Ears: TM's normal bilaterally and EAC's normal General nose exam: Normal external nose present and Normal nasal mucous membranes and turbinates present Face and sinus: Yes normal facial exam Mouth: Normal oral and palatal mucosa present Throat: Yes uvula midline, Yes abnormal tonsil (Erythematous with exudate bilaterally left greater than right.), No peritonsillar mass and No uvular edema Neck Neck: Yes lymphadenopathy ([place] anterior cervical adenopathy) Resp Effort & Inspection: normal respiratory effort Auscultation: clear to auscultation bilaterally Cardio Rate: regular rate Rhythm: regular rhythm Heart sounds: S1 normal heart sound present and S2 normal heart sound present Neuro General: patient oriented x3 Assessment & Plan Assessment & Plan (1) Pharyngitis: Code(s): J02.9 - Acute pharyngitis, unspecified Qualifiers: Pharyngitis/tonsillitis etiology: unspecified etiology Qualified Code(s): J02.9 - Acute pharyngitis, unspecified Plan: Will treat given patient's symptoms and recurrence of strep. Advised to return to clinic if symptoms do not improve or rash develops is certainly EBV is in the differential although she denies fever, fatigue abdominal pain. Return to clinic if symptoms do not improve over next 3-5 days. Medications: New amoxicillin 500 mg PO TID 10 days 30 caps 0RF Coding Level of Care Code Est Pt Level 3 (82587) Diagnoses Pharyngitis, unspecified etiology J02.9 Pharyngitis/tonsillitis etiology: unspecified etiology
[2023-07-18 10:02] VITALS: BP 120/70; PULSE 69; TEMP 36.6; O2SAT 97
== END 2023-07-18 10:18 | disposition home or self-care (01) ==
PROVIDERS: Visit Provider Physician Assistant
DX: J02.9 Acute pharyngitis, unspecified (principal)
CPT/HCPCS: 99213